=== PATIENT | male | born 1955 | race Caucasian/White ===

== ENCOUNTER 2019-07-20 18:13 | Emergency (ER) | payer OTHER, MEDICAID ==
[~2019-07-20] VITALS: Ht 182.9 cm; Wt 81.6 kg
[2019-07-20 18:45] VITALS: Ht 182.9 cm; Wt 81.6 kg
[2019-07-21 04:19] VITALS: BP 123/72
== END 2019-07-21 04:19 | disposition home or self-care (01) ==
LOC: ED 18:13
DX: S62.502A Fracture of unspecified phalanx of left thumb, initial encounter for closed fracture (principal); S01.01XA Laceration without foreign body of scalp, initial encounter; F10.129 Alcohol abuse with intoxication, unspecified; I10 Essential (primary) hypertension; W18.09XA Striking against other object with subsequent fall, initial encounter; Y93.89 Activity, other specified; Y92.89 Other specified places as the place of occurrence of the external cause; Y99.8 Other external cause status
CPT/HCPCS: 82962; 90715; A4570; J2001; Q0092

== ENCOUNTER 2019-07-21 20:27 | Emergency (ER) | payer OTHER, MEDICAID ==
[~2019-07-21] VITALS: Ht 170.2 cm; Wt 91.6 kg
[2019-07-21 21:42] VITALS: Ht 170.2 cm; Wt 91.6 kg
[2019-07-22 00:31] VITALS: BP 163/86
== END 2019-07-22 00:31 | disposition home or self-care (01) ==
LOC: ED 20:27
DX: S30.0XXA Contusion of lower back and pelvis, initial encounter (principal); I10 Essential (primary) hypertension; W18.30XA Fall on same level, unspecified, initial encounter; Y93.89 Activity, other specified; Y92.89 Other specified places as the place of occurrence of the external cause; Y99.8 Other external cause status